=== PATIENT | female | born 2000 | race African-American/Black ===

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

== ENCOUNTER 2023-05-31 19:55 | Emergency (ER) | payer OTHER, SELFPAY ==
[2023-05-31] MEDS ORDERED: predniSONE 20 MG TAB ONE (20:53)
[2023-05-31] MEDS ORDERED: Ibuprofen 800 MG TAB ONE (20:53)
[2023-05-31 22:01] LABS: SARS-CoV-2 NAA Rapid Test Not Detected (NotDetected)
== END 2023-05-31 22:11 | disposition home or self-care (01) ==
LOC: ERS 19:55
DX: J10.1 Influenza due to other identified influenza virus with other respiratory manifestations (principal); Z20.822 Contact with and (suspected) exposure to COVID-19
CPT/HCPCS: 99284; J7512

== ENCOUNTER 2023-08-24 17:24 | Emergency (ER) | payer MEDICAID, SELFPAY ==
[2023-08-24] MEDS ORDERED: cefTRIAXone (ROCEPHIN) 1 GM VIAL ONE (17:40)
[2023-08-24] MEDS ORDERED: Lidocaine 1% PF 5 ML VIAL ONE (17:40)
[2023-08-24] MEDS ORDERED: cefTRIAXone (ROCEPHIN) 500 MG VIAL ONE (17:48)
[2023-08-24 18:13] LABS: Bacteria/HPF None Seen HPF (None Seen); Bilirubin Negative (Negative); Blood, Urine Negative (Negative); CAUTI Indications for Culture Acute Hematuria; Clarity Clear (Clear); Glucose, Urine (Dipstick) Normal (Negative); Ketone, Urine Negative (Negative); Leukocyte Negative Leu/uL (Negative); Nitrite Negative (Negative); Protein, Urine (Dipstick) Negative (Neg-Trace); RBC/HPF 0-3 HPF (0-3); Specific Gravity, Urine 1.024 (1.002-1.036); Squamous Epithelial 0-3 HPF (0-3); Urobilinogen Normal mg/dL (Less than 2); WBC/HPF 0-3 HPF (0-3)
[2023-08-24 18:14] LABS: Pregnancy Test - Urine (BHCG) Negative (Negative); Pregu Control Background? CLEAR/WHITE (CLR/WHITE); Pregu Control Bar Appear? YES (CONTROL BAR); Specific Gravity 1.024 (1.002-1.036); Urine Culture Reflex No No
[2023-08-26 12:21] LABS: Chlamydia by PCR, Vaginal Swab Not Detected (NotDetected); GC by PCR, Vaginal Swab Not Detected (NotDetected)
== END 2023-08-24 18:51 | disposition home or self-care (01) ==
LOC: ERS 17:24
DX: N89.8 Other specified noninflammatory disorders of vagina (principal)
CPT/HCPCS: 81001; 81025; 87480; 87491; 87510; 87591; 87660; 96372; 99283; J0696

== ENCOUNTER 2023-12-04 16:38 | Emergency (ER) | payer BC ==
[2023-12-04] MEDS ORDERED: Mag-Al 1200 mg/1200 mg/30 ML UDCUP ONE (17:58)
== END 2023-12-04 18:09 | disposition home or self-care (01) ==
LOC: ERS 16:38
DX: R07.2 Precordial pain (principal)
CPT/HCPCS: 71045; 93005

== ENCOUNTER 2024-05-22 10:52 | Emergency (ER) | payer BC ==
[2024-05-22] MEDS ORDERED: Famotidine 20 MG TAB ONE (11:58)
[2024-05-22] MEDS ORDERED: diphenhydrAMINE 25 MG CAP ONE (11:58)
[2024-05-22] MEDS ORDERED: predniSONE 20 MG TAB ONE (11:58)
== END 2024-05-22 13:20 | disposition home or self-care (01) ==
LOC: ERS 10:52
DX: T78.40XA Allergy, unspecified, initial encounter (principal)
CPT/HCPCS: 99282; J7512